=== PATIENT | female | born 1950 | race Caucasian/White ===

== ENCOUNTER 2019-06-14 17:42 | Inpatient (IN) ==
[~2019-06-14 17:42] MED LIST: DIPRIVAN VIAL ONE; EPHEDRINE SULFATE INJ ONE; NEOSTIGMINE INJ ONE; NORCURON INJ 10 MG VIAL ONE; NORMODYNE INJ 100 MG VIAL ONE; QUELICIN (OR ANECTINE) ONE; ROBINUL ONE; SUPRANE ONE; VERSED ONE
[2019-06-14 17:49] VITALS: BMI 22.6
[2019-06-14] MEDS ORDERED: NS 1000 ML 1,000 ML IV ONE (17:53)
--- NOTE | 2019-06-14 17:54 | ED.ABDFE ---
HPI Time Seen Time Seen by Provider: 06/14/19 17:53 PCP Primary Care Physician: RUDI DEJESUS HPI Comment HPI Comment: 69 yo f w/ prev hx of svt/ pacemaker/ type 2 dm presents w/ 2 day hx of progressive abd pain. Dull/ aching in quality, upper abdominal/ rlq area, non radiating, constant, no relieving/ provoking factors, a/w nb/nb n/v. + chills w/o fever. Denies diarrhea, blood per rectum, urinary sx's, cp/ sob, diaphoresis, back/ flank pain. No cough/ congestion. Complaint Chief Complaint:: PT. C/O ABDOMINAL PAIN, NAUSEA/VOMITING. PT. ALSO C/O CHILLS. PT. DRY HEAVING IN TRIAGE. Source History Provided: Patient Mode of arrival Mode of Arrival: Ambulatory Timing Onset of Chief Complaint: 06/14/19 Modifying factors Worsening Factors: Nothing Improving Factors: Nothing Associated signs and symptoms Associated Signs and Symptoms: Nausea and Vomiting; denies Diarrhea, Constipation, Hematemesis, Hematochezia, Melena, Vaginal Bleeding, Vaginal Discharge, Dysuria, Frequency, Urgency and Hematuria PMH PMH Past Medical History: Yes Past Medical History: Diabetes, Dyslipidemia and SVT Past Surgical History: Yes Surgical History: Cholecystectomy, Hysterectomy and Joint Replacement Family History History of Family Medical Conditions: Yes Family Medical History: Cancer and Coronary Artery Disease Social History Does patient currently use any type of tobacco product: No Have you used tobacco products in the last 12 months: No Type of Tobacco Use: None Does any household member use tobacco: No Alcohol Use: None Do you use any recreational Drugs:: No Lives With: Spouse Lives Where: Home infectious screening In the last 2 months have you had wt loss of >10#?: NO Have you had fever, night sweats or hemotysis?: No Have you traveled outside the country in the last 6 months?: No Isolation: Standard ROS Review of Systems Constitutional: Chills and Malaise; negative Fever Eyes: No Symptoms Reported ENTM: No Symptoms Reported Respiratoy: No Symptoms Reported Cardiovascular: No Symptoms Reported Gastrointestinal/Abdominal: Abdominal Pain, Nausea and Vomiting; negative Constipation and Diarrhea Genitourinary: No Symptoms Reported Neurological: No Symptoms Reported Musculoskeletal: No Symptoms Reported Integumentary: No Symptoms Reported Hematologic/Lymphatic: No Symptoms Reported Endocrine: No Symptoms Reported Psychiatric: No Symptoms Reported All Other Systems: Reviewed and Negative PE Vital Signs Vitals: Temperature 97.7 F Pulse Rate 77 Respiratory Rate 26 Blood Pressure [Left Arm] 122/72 Blood Pressure 153/69 O2 Sat by Pulse Oximetry 100 General Limitations: No Limitations General Appearance: Alert, Anxious and In Distress Head Head Exam: Normal Inspection Eyes Eye exam: Normal Appearance ENT ENT Exam: Normal Exam Neck Neck Exam: Normal Inspection Chest Chest Inspection: Normal Inspection Respiratory Respiratory Exam: Normal Lung Sounds Bilat Cardiovascular Cardiovascular Exam: Regular Rate and Normal Rhythm Abdominal Exam Abdominal Exam: Tenderness, Guarding (voluntary ) and Hypoactive Bowel Sounds; negative Distention, Rebound and Mass Abdominal Tenderness: RLQ and Epigastrium Rectal Rectal Exam: Deferred Back Back Exam: Normal Inspection Extremeties Extremities Exam: Normal Inspection Neurologic Neurological Exam: Alert and Oriented X3 Psychiatric Psychiatric Exam: Normal Affect and Normal Mood Skin Skin Exam: Warm, Dry and Intact MDM Additional Information Obtained From Additional information provided by: Family Differential Diagnosis Differential Diagnosis- Considerations may include:: Angina/MD, Appendicitis, Bowel Obstruction, Cholcystitis, Cholelethiasis, Constipation, Diverticular disease, Gastritus/PUD, Ischemic Bowel, Pancreatitis, Urinary obstruction, Urinary tract infection and Urolithiasis COURSE Treatment Treatment: 69 yo f w/ prev hx of svt/ pacemaker/ DM presents w/ signifigant abd pain as well as n/v. On my initial exam she was afebrile h/e had noted rigors on exam. TTP bilateral upper quadrants/ RLQ. Elevated WBC. LActate 2.7. Zosyn started empirically suspecting intrabodominal source. EKG obtained which demonstrated a LBBB. Unclear if this is old or new. TNI negative. Denies any CP whatsoever. Ct abd/ pelvis did demonstrate cecal volvulus w/ high grade obstruction. IVF's bloused and continued at 125 cc/hr. NG tube placed. d/w Dr Etienne whom agrees to consult. Dr Granda agrees to admit. Education/Counseling Education/Counseling: Patient, Family, Education and Counseling Educated On: Treatment, Diagnosis, Prognosis and Needs for Follow Up ROR Labs Reviewed Laboratory Results Reviewed?: Yes Result Diagrams: 06/14/19 17:58 06/14/19 17:58 Laboratory: WBC 19.3 X10^3/uL (3.6-10.0) H 06/14/19 17:58 RBC 4.44 X10^6/uL (3.5-5.4) 06/14/19 17:58 Hgb 12.2 g/dL (12.0-16.0) 06/14/19 17:58 Hct 37.6 % (36.0-47.0) 06/14/19 17:58 MCV 84.7 fL (80.0-100.0) 06/14/19 17:58 MCH 27.4 pg (27.0-34.0) 06/14/19 17:58 MCHC 32.3 g/dL (33.0-35.0) L 06/14/19 17:58 RDW 13.1 % (11.6-16.5) 06/14/19 17:58 Plt Count 359 X10^3/uL (150.0-450.0) 06/14/19 17:58 MPV 8.3 fL (7.4-11.0) 06/14/19 17:58 Neut % (Auto) 86.4 % (42.0-75.0) H 06/14/19 17:58 Lymph % (Auto) 9.6 % (21.0-51.0) L 06/14/19 17:58 [place] % (Auto) 3.3 % (0.0-13.0) 06/14/19 17:58 Eos % (Auto) 0.4 % (0.9-2.9) L 06/14/19 17:58 Baso % (Auto) 0.3 % (0.2-1.0) 06/14/19 17:58 Neut # (Auto) 16.7 x10^3/uL (2.2-4.8) H 06/14/19 17:58 Lymph # (Auto) 1.8 X10^3/uL (1.3-2.9) 06/14/19 17:58 [place] # (Auto) 0.6 x10^3/uL (0.3-0.8) 06/14/19 17:58 Eos # (Auto) 0.1 x10^3/uL (0.0-0.2) 06/14/19 17:58 Baso # (Auto) 0.1 X10^3/uL (0.0-0.1) 06/14/19 17:58 Absolute Nucleated RBC 0.0 /100WBC 06/14/19 17:58 Sodium 140 mmol/L (136-145) 06/14/19 17:58 Corrected Sodium 142 mmol/L (136-145) 06/14/19 17:58 Potassium 3.3 mmol/L (3.5-5.1) L 06/14/19 17:58 Chloride 100 mmol/L (98-107) 06/14/19 17:58 Carbon Dioxide 30.1 mmol/L (21-32) 06/14/19 17:58 BUN 10 mg/dL (7-18) 06/14/19 17:58 Creatinine 0.75 mg/dL (0.55-1.02) 06/14/19 17:58 Est GFR (MDRD) Af Amer > 60 (>60) 06/14/19 17:58 Est GFR (MDRD) Non-Af > 60 (>60) 06/14/19 17:58 Glucose 171 mg/dL (65-99) H 06/14/19 17:58 Lactic Acid 2.7 mmol/L (0.4-2.0) H 06/14/19 18:06 Calcium 10.1 mg/dL (8.5-10.1) 06/14/19 17:58 Troponin I < 0.02 ng/mL (0-1.5) 06/14/19 17:58 XRAY XRAY Interpreted by: Radiologist XRAY Findings: ct abd w/ cecal volvulus EKG Rate: 86 [place]: Normal Rhythm: NSR Block: LBBB Hypertrophy: None ST: Nonsp Opioid Opioid Risk Tool Age (Ian box if 16-45): No Total: 0 Total Score Risk Category: Low Risk Copyright: [facility] predicting aberrant behaviors Diagnosis Discharge Problem: Cecal volvulus Sepsis Qualifiers: Sepsis type: sepsis due to unspecified organism Sepsis acute organ dysfunction status: without acute organ dysfunction Qualified Code(s): A41.9 - Sepsis, unspecified organism
[2019-06-14] MEDS ORDERED: NS 1000 ML 1,000 ML ONE ×2 (17:58→19:03)
[2019-06-14] MEDS ORDERED: COMPAZINE INJ IVP ONE (18:02)
[2019-06-14] MEDS ORDERED: COMPAZINE INJ ONE (18:03)
[2019-06-14 18:16] LABS: BASOPHILS # (AUTO) 0.1 X10^3/uL (0.0-0.1); BASOPHILS % (AUTO) 0.3 % (0.2-1.0); EOSINOPHILS # (AUTO) 0.1 x10^3/uL (0.0-0.2); EOSINOPHILS % (AUTO) 0.4 % (0.9-2.9); HEMATOCRIT 37.6 % (36.0-47.0); HEMOGLOBIN 12.2 g/dL (12.0-16.0); LYMPHOCYTES # (AUTO) 1.8 X10^3/uL (1.3-2.9); LYMPHOCYTES % (AUTO) 9.6 % (21.0-51.0); MEAN CORPUSCULAR HEMOGLOBIN 27.4 pg (27.0-34.0); MEAN CORPUSCULAR HGB CONC 32.3 g/dL (33.0-35.0); MEAN CORPUSCULAR VOLUME 84.7 fL (80.0-100.0); MEAN PLATELET VOLUME 8.3 fL (7.4-11.0); MONOCYTES # (AUTO) 0.6 x10^3/uL (0.3-0.8); MONOCYTES % (AUTO) 3.3 % (0.0-13.0); NEUTROPHILS # (AUTO) 16.7 x10^3/uL (2.2-4.8); NEUTROPHILS % (AUTO) 86.4 % (42.0-75.0); PLATELET COUNT 359 X10^3/uL (150.0-450.0); RED BLOOD COUNT 4.44 X10^6/uL (3.5-5.4); RED CELL DISTRIBUTION WIDTH 13.1 % (11.6-16.5); WHITE BLOOD COUNT 19.3 X10^3/uL (3.6-10.0)
[2019-06-14] MEDS ORDERED: ZOSYN VIAL 3.375 GRAMS 3.375 G in NS 100 ML IV + SPIKE MINIBAG* 100 ML IV ONE (18:20)
[2019-06-14 18:28] LABS: BLOOD UREA NITROGEN 10 mg/dL (7-18); CALCIUM 10.1 mg/dL (8.5-10.1); CARBON DIOXIDE 30.1 mmol/L (21-32); CHLORIDE 100 mmol/L (98-107); COR NA(FOR HYPERGLY) 142 mmol/L (136-145); CREATININE 0.75 mg/dL (0.55-1.02); SODIUM 140 mmol/L (136-145); TROPONIN I < 0.02 ng/mL (0-1.5); eGFR NON BLACK RACES > 60 (>60)
--- NOTE | 2019-06-14 18:50 | RAD ---
HISTORYChest painSTUDYAP chestCOMPARISONNoneFINDINGSThere is mild cardiac enlargement. Pacemaker is present. The lungs and pleural spaces are clear. Metallic clothing artifacts are projected over the central mediastinum.IMPRESSIONCardiomegaly with pacemaker. No acute pulmonary or pleural lesion demonstrated.Electronically signed by: ISIAH HERRERA (Jun 14, 2019 18:49:04)
[2019-06-14] MEDS ORDERED: DILAUDID INJ IVP ONE (18:58)
[2019-06-14] MEDS ORDERED: DILAUDID INJ ONE (19:01)
[2019-06-14] MEDS ORDERED: ZOSYN VIAL 3.375 GRAMS IV ONE (19:03)
[2019-06-14] MEDS ORDERED: NS 100 ML IV + SPIKE MINIBAG* 100 ML IV ONE (19:03)
[2019-06-14] MEDS: NS 1000 ML 1,000 ML IV SCH (19:15)
--- NOTE | 2019-06-14 21:09 | CT ---
HISTORYPT. C/O ABDOMINAL PAIN, NAUSEA/VOMITING. PT. ALSO C/O CHILLS. PT. DRY HEAVING IN TRIAGE.STUDYABDOMEN/PELVIS WITH CONCOMPARISONNone.TECHNIQUEMultiple axial images of the abdomen and pelvis were obtained from the lung bases to the pubic symphysis after the administration of IV contrast. Dose reduction techniques including Automated Exposure Control (AEC) and adjustment of mA and kV were utilized.FINDINGSThe included portions of the lung bases are clear. Cardiac pacing leads are noted. The gallbladder is surgically absent. The liver, pancreas, spleen, adrenal glands and left kidney are unremarkable in their CT appearance. There are a couple of well-circumscribed right renal hypodensities measuring less than 2 cm each which likely reflect cysts. The urinary bladder is well distended and grossly unremarkable. The cecum is displaced into the left upper quadrant of the abdomen with swirling of the ascending colon which is small in caliber (images 47 through 56 of series 4). There is distension of the displaced cecum with stool and air in addition to multiple fluid-filled loops of small bowel throughout the abdomen. There is normal mucosal enhancement of the cecum without significant wall thickening or inflammatory change. The ascending and transverse colon are decompressed. There is a moderate amount of stool throughout the descending and rectosigmoid colon. There is a small amount of free fluid within the pericolic gutter on the left. There is no significant bowel wall thickening or evidence of pneumatosis. There is no portal venous gas. The mesenteric vessels appear opacified with contrast. There is no intraperitoneal free air. There is atherosclerotic disease of the nonaneurysmal abdominal aorta. There is no acute or destructive bony abnormality.IMPRESSIONCecal volvulus without late sequelae of bowel ischemia, however, correlation with lactic acid levels is suggested. There is marked distension of the cecum with high-grade obstruction of the ascending colon at the level of the volvulus resulting in diffuse small bowel dilatation. Emergent surgical consultation is recommended.Findings and recommendations were discussed over the phone with Dr. Gabriel at 9:00 p.m. 06/14/2019.Electronically signed by: GABRIELLE GAONA (Jun 14, 2019 21:08:04)
[2019-06-14] MEDS: DILAUDID INJ IVP PRN (21:53)
[2019-06-15] MEDS: ZOSYN VIAL 3.375 GRAMS 3.375 G in NS 100 ML IV + SPIKE MINIBAG* 100 ML IV SCH ×4 (00:07→21:45)
[2019-06-15 00:16] LABS: CKMB % 2.3 % (<4); CREATINE KINASE 43 Units/L (26-192); CREATINE KINASE MB < 1.0 ng/mL (0-4.0); TROPONIN I < 0.02 ng/mL (0-1.5)
[2019-06-15] MEDS ORDERED: COMPAZINE INJ ONE (01:03)
[2019-06-15] MEDS: COMPAZINE INJ IM PRN (01:21)
[2019-06-15] MEDS: DILAUDID INJ IVP PRN ×8 (02:01→20:10)
--- NOTE | 2019-06-15 03:06 | RAD ---
Chest AP portableIndication: NG tube placement.COMPARISONJan2019FINDINGSThere is no pneumothorax. NG tube tip and side port over the stomach. There is cardiomegaly with pacemaker leads. There is no pneumothorax or effusion. There is no consolidation. Heart size enlarged.IMPRESSIONCardiomegaly and COPD, similar to the earlier radiograph. NG tube is over the stomach. Dilated loop of bowel in the left abdomen is compatible with cecal volvulus seen on CTElectronically signed by: ADAN CARRERO (Jun 15, 2019 03:05:17)
[2019-06-15 06:28] LABS: ALANINE AMINOTRANSFERASE 23 Units/L (12-78); ALBUMIN 3.5 g/dL (3.4-5.0); ALKALINE PHOSPHATASE 56 Units/L (46-116); ASPARTATE AMINO TRANSFERASE 13 Units/L (15-37); BLOOD UREA NITROGEN 8 mg/dL (7-18); CALCIUM 8.6 mg/dL (8.5-10.1); CARBON DIOXIDE 28.7 mmol/L (21-32); CHLORIDE 103 mmol/L (98-107); COR NA(FOR HYPERGLY) 140 mmol/L (136-145); CREATININE 0.58 mg/dL (0.55-1.02); SODIUM 139 mmol/L (136-145); TOTAL PROTEIN 6.5 g/dL (6.4-8.2); eGFR NON BLACK RACES > 60 (>60)
[2019-06-15] MEDS: NS 1000 ML 1,000 ML IV SCH ×2 (06:28→14:07)
[2019-06-15 06:29] LABS: LACTIC ACID 0.8 mmol/L (0.4-2.0)
[2019-06-15 06:30] LABS: BASOPHILS % (AUTO) 0.1 % (0.2-1.0); EOSINOPHILS % (AUTO) 0.1 % (0.9-2.9); HEMATOCRIT 35.8 % (36.0-47.0); HEMOGLOBIN 11.8 g/dL (12.0-16.0); LYMPHOCYTES # (AUTO) 1.4 X10^3/uL (1.3-2.9); LYMPHOCYTES % (AUTO) 8.7 % (21.0-51.0); MEAN CORPUSCULAR HEMOGLOBIN 27.6 pg (27.0-34.0); MEAN CORPUSCULAR HGB CONC 32.8 g/dL (33.0-35.0); MEAN CORPUSCULAR VOLUME 83.9 fL (80.0-100.0); MEAN PLATELET VOLUME 8.4 fL (7.4-11.0); MONOCYTES # (AUTO) 0.7 x10^3/uL (0.3-0.8); MONOCYTES % (AUTO) 4.3 % (0.0-13.0); NEUTROPHILS % (AUTO) 86.8 % (42.0-75.0); PLATELET COUNT 300 X10^3/uL (150.0-450.0); RED BLOOD COUNT 4.27 X10^6/uL (3.5-5.4); RED CELL DISTRIBUTION WIDTH 13.4 % (11.6-16.5); WHITE BLOOD COUNT 16.1 X10^3/uL (3.6-10.0)
[2019-06-15 06:36] LABS: CHOL/HDL RATIO 2.2 (0.0-5.0); CHOLESTEROL 87 mg/dL (0-200); CKMB % 2.8 % (<4); CREATINE KINASE 36 Units/L (26-192); CREATINE KINASE MB < 1.0 ng/mL (0-4.0); HDL CHOLESTEROL 39 mg/dL (40-60); TRIGLYCERIDES 71 mg/dL (0-150); TROPONIN I < 0.02 ng/mL (0-1.5)
--- NOTE | 2019-06-15 09:41 | DR.PROGNOT ---
Hospital Progress Notes - Progress Note for Day of: Progress Note Date: 06/15/19 - Chief Complaint Chief Complaint: still having abdominal pain, severe at times .did not change overnight. c/o nausea . no BM. abdominal xray still showing cecal volvulus with SBO . - Past Medical Family Social History Past Med/Fam/Surg Hx: No changes since H&P Allergies: Allergies codeine Allergy (Verified 06/14/19 17:48) diltiazem [From Cardizem] Allergy (Verified 06/14/19 23:05) ondansetron [From Zofran] Allergy (Verified 06/14/19 17:48) - Review Of Systems ROS: No change since H&P - Vital Signs Vital Signs: Temperature 98.2 F Pulse Rate [Left Brachial] 88 Pulse Rate 97 Respiratory Rate 20 Blood Pressure [Left Arm] 157/74 Blood Pressure 147/71 O2 Sat by Pulse Oximetry 93 - Physical Exam Oriented: Normal Ear: Normal Nose: Normal Throat: Normal Respiratory: Normal Cardiovascular: Normal : Normal GI: Tenderness: Diffuse (distended and tympanic abdomen with metalic BS ) Speech Pattern: Clear, Appropriate - Laboratory and Diagnostics Result Diagrams: 06/15/19 05:52 06/15/19 05:52 Labs: Laboratory WBC 16.1 X10^3/uL (3.6-10.0) H 06/15/19 05:52 RBC 4.27 X10^6/uL (3.5-5.4) 06/15/19 05:52 Hgb 11.8 g/dL (12.0-16.0) L 06/15/19 05:52 Hct 35.8 % (36.0-47.0) L 06/15/19 05:52 MCV 83.9 fL (80.0-100.0) 06/15/19 05:52 MCH 27.6 pg (27.0-34.0) 06/15/19 05:52 MCHC 32.8 g/dL (33.0-35.0) L 06/15/19 05:52 RDW 13.4 % (11.6-16.5) 06/15/19 05:52 Plt Count 300 X10^3/uL (150.0-450.0) 06/15/19 05:52 MPV 8.4 fL (7.4-11.0) 06/15/19 05:52 Neut % (Auto) 86.8 % (42.0-75.0) H 06/15/19 05:52 Lymph % (Auto) 8.7 % (21.0-51.0) L 06/15/19 05:52 [place] % (Auto) 4.3 % (0.0-13.0) 06/15/19 05:52 Eos % (Auto) 0.1 % (0.9-2.9) L 06/15/19 05:52 Baso % (Auto) 0.1 % (0.2-1.0) L 06/15/19 05:52 Neut # (Auto) 14.0 x10^3/uL (2.2-4.8) H 06/15/19 05:52 Lymph # (Auto) 1.4 X10^3/uL (1.3-2.9) 06/15/19 05:52 [place] # (Auto) 0.7 x10^3/uL (0.3-0.8) 06/15/19 05:52 Eos # (Auto) 0.0 x10^3/uL (0.0-0.2) 06/15/19 05:52 Baso # (Auto) 0.0 X10^3/uL (0.0-0.1) 06/15/19 05:52 Absolute Nucleated RBC 0.0 /100WBC 06/15/19 05:52 Sodium 139 mmol/L (136-145) 06/15/19 05:52 Corrected Sodium 140 mmol/L (136-145) 06/15/19 05:52 Potassium 3.5 mmol/L (3.5-5.1) 06/15/19 05:52 Chloride 103 mmol/L (98-107) 06/15/19 05:52 Carbon Dioxide 28.7 mmol/L (21-32) 06/15/19 05:52 BUN 8 mg/dL (7-18) 06/15/19 05:52 Creatinine 0.58 mg/dL (0.55-1.02) 06/15/19 05:52 Est GFR (MDRD) Af Amer > 60 (>60) 06/15/19 05:52 Est GFR (MDRD) Non-Af > 60 (>60) 06/15/19 05:52 Glucose 130 mg/dL (65-99) H 06/15/19 05:52 POC Glucose (mg/dL) 131 mg/dL (65-99) H 06/15/19 05:36 Lactic Acid 0.8 mmol/L (0.4-2.0) 06/15/19 05:52 Calcium 8.6 mg/dL (8.5-10.1) 06/15/19 05:52 Corrected Calcium TNP 06/15/19 05:52 Total Bilirubin 0.30 mg/dL (0.2-1.0) 06/15/19 05:52 AST 13 Units/L (15-37) L 06/15/19 05:52 ALT 23 Units/L (12-78) 06/15/19 05:52 Alkaline Phosphatase 56 Units/L (46-116) 06/15/19 05:52 Creatine Kinase 36 Units/L (26-192) 06/15/19 05:52 CK-MB (CK-2) < 1.0 ng/mL (0-4.0) 06/15/19 05:52 CK/CKMB % Calc 2.8 % (<4) 06/15/19 05:52 Troponin I < 0.02 ng/mL (0-1.5) 06/15/19 05:52 Total Protein 6.5 g/dL (6.4-8.2) 06/15/19 05:52 Albumin 3.5 g/dL (3.4-5.0) 06/15/19 05:52 Globulin 3.0 g/dL (2.5-4.5) 06/15/19 05:52 Albumin/Globulin Ratio 1.2 Ratio (1.1-2.1) 06/15/19 05:52 Triglycerides 71 mg/dL (0-150) 06/15/19 05:52 Cholesterol 87 mg/dL (0-200) 06/15/19 05:52 LDL Cholesterol, Calc 34 mg/dL (0-100) 06/15/19 05:52 HDL Cholesterol 39 mg/dL (40-60) L 06/15/19 05:52 Cholesterol/HDL Ratio 2.2 (0.0-5.0) 06/15/19 05:52 - Assessment and Plan 1: BOWEL OBSTRUCTION POSSIBLE CECAL VOLVULUS WITH ADHESIONS . TO PROCEED WITH LAPAROTOMY AND POSSIBLE BOWEL RESECTION .. 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
[2019-06-15] MEDS ORDERED: NS 1000 ML 1,000 ML ONE ×2 (09:48→09:55)
[2019-06-15] MEDS ORDERED: FENTANYL INJ 250 mcg ONE (09:49)
[2019-06-15] MEDS ORDERED: DROPERIDOL ONE (10:03)
[2019-06-15] MEDS ORDERED: LEVAQUIN PREMIX IV 500 MG 500 MG/100 ML BAG IV ONE (10:33)
[2019-06-15] MEDS ORDERED: BACITRACIN VIAL ONE (10:35)
[2019-06-15] MEDS ORDERED: DILAUDID INJ ONE ×4 (11:29→13:59)
[2019-06-15 11:34] LABS: BILIRUBIN,URINE NEGATIVE (NEGATIVE); BLOOD/HEMOGLOBIN,URINE 3+ (NEGATIVE); GLUCOSE, URINE NEGATIVE (NEGATIVE); KETONES,URINE 2+ (NEGATIVE); LEUKOCYTE ESTERASE ,URINE NEGATIVE (NEGATIVE); NITRITES,URINE NEGATIVE (NEGATIVE); PROTEIN,URINE 2+ (NEGATIVE); UROBILINOGEN,URINE NORMAL (NORMAL)
[2019-06-15 11:44] LABS: APPEARANCE,URINE CLEAR (CLEAR); BACTERIA,URINE NEGATIVE /HPF (NEGATIVE); COLOR,URINE YELLOW (YELLOW); SQUAMOUS EPITHELIAL CELL,UR RARE /HPF (NEGATIVE)
[2019-06-15] MEDS ORDERED: BENADRYL INJ 50 MG VIAL IVP PRN (13:00)
[2019-06-15] MEDS ORDERED: DILAUDID INJ IVP PRN (13:00)
[2019-06-15] MEDS ORDERED: PHENERGAN INJ 25 MG IM PRN (13:00)
[2019-06-15] MEDS ORDERED: REGLAN INJ 10 MG VIAL IVP PRN (13:00)
--- NOTE | 2019-06-15 13:04 | OR.IMMED ---
Immediate Post-Op Note - Immediate Post-Op Note Pre-Op Diagnosis: bowel obstruction with cecal volvulus . abdominal adhesions. Post-Op Diagnosis: cecal volvulus with close loop obstruction. abdominal adhesions . Procedure: exploratory laparotomy , lysis of adhesions . rt colon resection.. Surgeon/Bacteriologist Soil: Jaimie. Specimens Removed: cecum and rt colon. Drains: Too Jean Complications: none Condition: Stable (keep NPO .NGT and PO care .)
[2019-06-15] MEDS ORDERED: NS IRRIGATION 1000 ML ONE (14:27)
[2019-06-15] MEDS: FLAGYL IV PREMIX 500 MG BAG 500 MG/100 ML BAG IV SCH ×2 (14:29→20:19)
--- NOTE | 2019-06-15 15:34 | RAD ---
HISTORYBOWEL OBSTRUCTION DIABETES, GB, HYSTERECTOMY, JOINT REPLACEMENTSTUDYKUBCOMPARISONCT abdomen pelvis June 14, 2001FINDINGSEvaluation of the abdomen demonstrates diffuse mild dilatation of the small bowel throughout the abdomen. Contrast is noted throughout the small bowel loops. Interval laparotomy has been performed with midline krystian and drain in place. The osseous structures are intact.IMPRESSIONInterval laparotomy with mild residual diffuse small bowel dilatation.Electronically signed by: CHAYO NIEVES (Jun 15, 2019 15:33:48)
[2019-06-15] MEDS ORDERED: LOPRESSOR INJ 5 MG AMP ONE ×2 (16:28→18:21)
[2019-06-15] MEDS: LOPRESSOR INJ 5 MG AMP IVP PRN ×2 (16:37→18:29)
[2019-06-15] MEDS ORDERED: HumuLIN R SUBCUT PRN (16:46)
[2019-06-15] MEDS ORDERED: HumuLIN R ONE (16:52)
[2019-06-15] MEDS ORDERED: LOPRESSOR INJ 5 MG AMP IVP PRN (19:00)
[2019-06-15] MEDS: SNACK - Diabetic Appropriate PO SCH (20:20)
[2019-06-16] MEDS: DILAUDID INJ IVP PRN ×10 (00:10→19:32)
[2019-06-16] MEDS: NS 1000 ML 1,000 ML IV SCH ×2 (00:11→04:18)
[2019-06-16] MEDS: FLAGYL IV PREMIX 500 MG BAG 500 MG/100 ML BAG IV SCH ×4 (02:20→20:19)
[2019-06-16 04:28] LABS: BASOPHILS % (AUTO) 0.2 % (0.2-1.0); HEMATOCRIT 34.6 % (36.0-47.0); HEMOGLOBIN 11.3 g/dL (12.0-16.0); LYMPHOCYTES # (AUTO) 1.1 X10^3/uL (1.3-2.9); LYMPHOCYTES % (AUTO) 5.3 % (21.0-51.0); MEAN CORPUSCULAR HEMOGLOBIN 27.3 pg (27.0-34.0); MEAN CORPUSCULAR HGB CONC 32.6 g/dL (33.0-35.0); MEAN CORPUSCULAR VOLUME 83.8 fL (80.0-100.0); MEAN PLATELET VOLUME 8.1 fL (7.4-11.0); MONOCYTES # (AUTO) 1.3 x10^3/uL (0.3-0.8); MONOCYTES % (AUTO) 6.1 % (0.0-13.0); NEUTROPHILS # (AUTO) 18.1 x10^3/uL (2.2-4.8); NEUTROPHILS % (AUTO) 88.4 % (42.0-75.0); PLATELET COUNT 308 X10^3/uL (150.0-450.0); RED BLOOD COUNT 4.13 X10^6/uL (3.5-5.4); RED CELL DISTRIBUTION WIDTH 13.6 % (11.6-16.5); WHITE BLOOD COUNT 20.5 X10^3/uL (3.6-10.0)
[2019-06-16 04:49] LABS: ALANINE AMINOTRANSFERASE 18 Units/L (12-78); ALBUMIN 2.5 g/dL (3.4-5.0); ALKALINE PHOSPHATASE 40 Units/L (46-116); ASPARTATE AMINO TRANSFERASE 17 Units/L (15-37); BLOOD UREA NITROGEN 10 mg/dL (7-18); CALCIUM 7.2 mg/dL (8.5-10.1); CARBON DIOXIDE 25.6 mmol/L (21-32); CHLORIDE 107 mmol/L (98-107); COR CA(FOR HYPOALB) 8.4 mg/dL (8.5-10.1); COR NA(FOR HYPERGLY) 144 mmol/L (136-145); CREATININE 0.58 mg/dL (0.55-1.02); SODIUM 142 mmol/L (136-145); TOTAL PROTEIN 5.3 g/dL (6.4-8.2); eGFR NON BLACK RACES > 60 (>60)
[2019-06-16] MEDS: ZOSYN VIAL 3.375 GRAMS 3.375 G in NS 100 ML IV + SPIKE MINIBAG* 100 ML IV SCH ×3 (06:36→22:07)
[2019-06-16] MEDS: LOVENOX INJ 40 MG SYR SC SCH (08:08)
[2019-06-16] MEDS: NS + KCL 20 MEQ/L 1,000 ML IV SCH ×3 (10:02→19:49)
--- NOTE | 2019-06-16 10:32 | DR.PROGNOT ---
Hospital Progress Notes - Progress Note for Day of: Progress Note Date: 06/16/19 - Chief Complaint Chief Complaint: PO day 1. s/p laparotomy , Rt colectomy , lysis of adhesions . doing fairly well with good urine out put and stable VS .. - Past Medical Family Social History Past Med/Fam/Surg Hx: No changes since H&P Allergies: Allergies codeine Allergy (Verified 06/14/19 17:48) diltiazem [From Cardizem] Allergy (Verified 06/14/19 23:05) ondansetron [From Zofran] Allergy (Verified 06/14/19 17:48) - Review Of Systems ROS: No change since H&P - Vital Signs Vital Signs: Temperature 99.5 F Pulse Rate [Left Brachial] 83 Pulse Rate 103 Respiratory Rate 16 Blood Pressure [Left Arm] 161/76 Blood Pressure 162/71 O2 Sat by Pulse Oximetry 97 - Physical Exam Oriented: Normal Ear: Normal Nose: Normal Throat: Normal Respiratory: Normal Cardiovascular: Normal : Normal GI: Tenderness: Diffuse (incisional tenderness , BS hypoactive ..) Mood Description: Calm Speech Pattern: Clear, Appropriate - Laboratory and Diagnostics Result Diagrams: 06/16/19 03:58 06/16/19 03:58 Labs: Laboratory WBC 20.5 X10^3/uL (3.6-10.0) H 06/16/19 03:58 RBC 4.13 X10^6/uL (3.5-5.4) 06/16/19 03:58 Hgb 11.3 g/dL (12.0-16.0) L 06/16/19 03:58 Hct 34.6 % (36.0-47.0) L 06/16/19 03:58 MCV 83.8 fL (80.0-100.0) 06/16/19 03:58 MCH 27.3 pg (27.0-34.0) 06/16/19 03:58 MCHC 32.6 g/dL (33.0-35.0) L 06/16/19 03:58 RDW 13.6 % (11.6-16.5) 06/16/19 03:58 Plt Count 308 X10^3/uL (150.0-450.0) 06/16/19 03:58 MPV 8.1 fL (7.4-11.0) 06/16/19 03:58 Neut % (Auto) 88.4 % (42.0-75.0) H 06/16/19 03:58 Lymph % (Auto) 5.3 % (21.0-51.0) L 06/16/19 03:58 [place] % (Auto) 6.1 % (0.0-13.0) 06/16/19 03:58 Eos % (Auto) 0.0 % (0.9-2.9) L 06/16/19 03:58 Baso % (Auto) 0.2 % (0.2-1.0) 06/16/19 03:58 Neut # (Auto) 18.1 x10^3/uL (2.2-4.8) H 06/16/19 03:58 Lymph # (Auto) 1.1 X10^3/uL (1.3-2.9) L 06/16/19 03:58 [place] # (Auto) 1.3 x10^3/uL (0.3-0.8) H 06/16/19 03:58 Eos # (Auto) 0.0 x10^3/uL (0.0-0.2) 06/16/19 03:58 Baso # (Auto) 0.0 X10^3/uL (0.0-0.1) 06/16/19 03:58 Absolute Nucleated RBC 0.0 /100WBC 06/16/19 03:58 Sodium 142 mmol/L (136-145) 06/16/19 03:58 Corrected Sodium 144 mmol/L (136-145) 06/16/19 03:58 Potassium 3.4 mmol/L (3.5-5.1) L 06/16/19 03:58 Chloride 107 mmol/L (98-107) 06/16/19 03:58 Carbon Dioxide 25.6 mmol/L (21-32) 06/16/19 03:58 BUN 10 mg/dL (7-18) 06/16/19 03:58 Creatinine 0.58 mg/dL (0.55-1.02) 06/16/19 03:58 Est GFR (MDRD) Af Amer > 60 (>60) 06/16/19 03:58 Est GFR (MDRD) Non-Af > 60 (>60) 06/16/19 03:58 Glucose 167 mg/dL (65-99) H 06/16/19 03:58 POC Glucose (mg/dL) 149 mg/dL (65-99) H 06/16/19 06:29 Lactic Acid 0.8 mmol/L (0.4-2.0) 06/15/19 05:52 Calcium 7.2 mg/dL (8.5-10.1) L 06/16/19 03:58 Corrected Calcium 8.4 mg/dL (8.5-10.1) L 06/16/19 03:58 Total Bilirubin 0.30 mg/dL (0.2-1.0) 06/16/19 03:58 AST 17 Units/L (15-37) 06/16/19 03:58 ALT 18 Units/L (12-78) 06/16/19 03:58 Alkaline Phosphatase 40 Units/L (46-116) L 06/16/19 03:58 Creatine Kinase 36 Units/L (26-192) 06/15/19 05:52 CK-MB (CK-2) < 1.0 ng/mL (0-4.0) 06/15/19 05:52 CK/CKMB % Calc 2.8 % (<4) 06/15/19 05:52 Troponin I < 0.02 ng/mL (0-1.5) 06/15/19 05:52 Total Protein 5.3 g/dL (6.4-8.2) L 06/16/19 03:58 Albumin 2.5 g/dL (3.4-5.0) L 06/16/19 03:58 Globulin 2.8 g/dL (2.5-4.5) 06/16/19 03:58 Albumin/Globulin Ratio 0.9 Ratio (1.1-2.1) L 06/16/19 03:58 Triglycerides 71 mg/dL (0-150) 06/15/19 05:52 Cholesterol 87 mg/dL (0-200) 06/15/19 05:52 LDL Cholesterol, Calc 34 mg/dL (0-100) 06/15/19 05:52 HDL Cholesterol 39 mg/dL (40-60) L 06/15/19 05:52 Cholesterol/HDL Ratio 2.2 (0.0-5.0) 06/15/19 05:52 Specimen Type Catherized urine 06/15/19 10:53 Urine Color Yellow (YELLOW) 06/15/19 10:53 Urine Appearance Clear (CLEAR) 06/15/19 10:53 Urine pH 6.0 (5.0 - 8.0) 06/15/19 10:53 Ur Specific [place] 1.020 (1.000-1.030) 06/15/19 10:53 Urine Protein 2+ (NEGATIVE) 06/15/19 10:53 Urine Glucose (UA) Negative (NEGATIVE) 06/15/19 10:53 Urine Ketones 2+ (NEGATIVE) 06/15/19 10:53 Urine Occult Blood 3+ (NEGATIVE) 06/15/19 10:53 Urine Nitrite Negative (NEGATIVE) 06/15/19 10:53 Urine Bilirubin Negative (NEGATIVE) 06/15/19 10:53 Urine Urobilinogen Normal (NORMAL) 06/15/19 10:53 Ur Leukocyte Esterase Negative (NEGATIVE) 06/15/19 10:53 Urine RBC 5-10 /HPF (0-3) A 06/15/19 10:53 Urine WBC 0-2 /HPF (0-5) 06/15/19 10:53 Ur Squamous Epith Cells Rare /HPF (NEGATIVE) 06/15/19 10:53 Urine Bacteria Negative /HPF (NEGATIVE) 06/15/19 10:53 Ur Culture Indicated? No/not indicated 06/15/19 10:53 Tissue Pathology To follow 06/15/19 11:26 - Assessment and Plan 1: cecal volvulus , S/P laparotomy , Rt colon resection , lysis of adhesions. same PO care . OOB ,DVT prophylaxis . well keep [place] today and IV ATB because of mild contamination from the bowel . 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
[2019-06-16] MEDS: SNACK - Diabetic Appropriate PO SCH (19:16)
[2019-06-17] MEDS: FLAGYL IV PREMIX 500 MG BAG 500 MG/100 ML BAG IV SCH ×4 (02:24→20:26)
[2019-06-17] MEDS: NS + KCL 20 MEQ/L 1,000 ML IV SCH ×4 (02:25→17:41)
[2019-06-17 05:11] LABS: BASOPHILS % (AUTO) 0.1 % (0.2-1.0); HEMATOCRIT 26.4 % (36.0-47.0); HEMOGLOBIN 8.7 g/dL (12.0-16.0); LYMPHOCYTES # (AUTO) 0.9 X10^3/uL (1.3-2.9); LYMPHOCYTES % (AUTO) 5.2 % (21.0-51.0); MEAN CORPUSCULAR HEMOGLOBIN 27.7 pg (27.0-34.0); MEAN CORPUSCULAR HGB CONC 32.9 g/dL (33.0-35.0); MEAN CORPUSCULAR VOLUME 84.3 fL (80.0-100.0); MEAN PLATELET VOLUME 8.7 fL (7.4-11.0); MONOCYTES # (AUTO) 0.9 x10^3/uL (0.3-0.8); NEUTROPHILS # (AUTO) 16.1 x10^3/uL (2.2-4.8); NEUTROPHILS % (AUTO) 89.7 % (42.0-75.0); PLATELET COUNT 209 X10^3/uL (150.0-450.0); RED BLOOD COUNT 3.13 X10^6/uL (3.5-5.4); RED CELL DISTRIBUTION WIDTH 13.3 % (11.6-16.5); WHITE BLOOD COUNT 17.9 X10^3/uL (3.6-10.0)
[2019-06-17 05:21] LABS: ALANINE AMINOTRANSFERASE 19 Units/L (12-78); ALBUMIN 2.1 g/dL (3.4-5.0); ALKALINE PHOSPHATASE 41 Units/L (46-116); ASPARTATE AMINO TRANSFERASE 18 Units/L (15-37); BLOOD UREA NITROGEN 10 mg/dL (7-18); CALCIUM 7.2 mg/dL (8.5-10.1); CARBON DIOXIDE 29.1 mmol/L (21-32); CHLORIDE 107 mmol/L (98-107); COR CA(FOR HYPOALB) 8.7 mg/dL (8.5-10.1); COR NA(FOR HYPERGLY) 143 mmol/L (136-145); CREATININE 0.47 mg/dL (0.55-1.02); SODIUM 142 mmol/L (136-145); TOTAL PROTEIN 4.9 g/dL (6.4-8.2); eGFR NON BLACK RACES > 60 (>60)
[2019-06-17] MEDS: ZOSYN VIAL 3.375 GRAMS 3.375 G in NS 100 ML IV + SPIKE MINIBAG* 100 ML IV SCH ×3 (06:25→22:20)
[2019-06-17] MEDS: DILAUDID INJ IVP PRN ×4 (06:26→21:07)
[2019-06-17] MEDS: LOVENOX INJ 40 MG SYR SC SCH (09:05)
[2019-06-17] MEDS: CALAN SR 180 MG PO SCH ×2 (09:36→20:25)
[2019-06-17] MEDS: ZESTRIL TAB 5 MG PO SCH (09:36)
[2019-06-17] MEDS: GLUCOPHAGE XR PO SCH ×2 (09:45→20:25)
[2019-06-17] MEDS ORDERED: POTASSIUM CHL 60 MEQ/NS 0.45% 500 ML IV PRN (10:22)
[2019-06-17] MEDS ORDERED: K-RIDER 10 MEQ/NS 100 ML 10 MEQ/100 ML BAG IV PRN (10:22)
[2019-06-17] MEDS ORDERED: MICRO K EXTEN CAP 10 MEQ PO PRN (10:22)
[2019-06-17] MEDS ORDERED: KLOR-CON PO PRN (10:22)
[2019-06-17] MEDS ORDERED: POTASSIUM CHL 40 MEQ/NS 0.45% 500 ML IV PRN (10:22)
[2019-06-17] MEDS ORDERED: POTASSIUM CHLORIDE LIQ 20 MEQ UDC PO PRN (10:22)
[2019-06-17] MEDS: MAGNESIUM SULFATE 1 GRAM/100 mL PREMIX 1 GM/100 ML BAG IV PRN ×2 (10:55→12:36)
[2019-06-17] MEDS: TOVIAZ PO SCH (20:24)
[2019-06-17] MEDS: SNACK - Diabetic Appropriate PO SCH (20:24)
[2019-06-17] MEDS: K-DUR TAB 20 MEQ PO PRN (20:25)
[2019-06-17] MEDS: COMPAZINE INJ IM PRN (21:03)
[2019-06-18] MEDS: DILAUDID INJ IVP PRN ×6 (00:27→20:55)
[2019-06-18] MEDS: FLAGYL IV PREMIX 500 MG BAG 500 MG/100 ML BAG IV SCH ×4 (02:15→20:56)
[2019-06-18] MEDS: NS + KCL 20 MEQ/L 1,000 ML IV SCH ×3 (02:15→16:29)
[2019-06-18] MEDS: ZOSYN VIAL 3.375 GRAMS 3.375 G in NS 100 ML IV + SPIKE MINIBAG* 100 ML IV SCH ×3 (05:00→23:00)
[2019-06-18 05:26] LABS: BASOPHILS % (AUTO) 0 % (0.2-1.0); EOSINOPHILS % (AUTO) 0.3 % (0.9-2.9); HEMATOCRIT 24.2 % (36.0-47.0); HEMOGLOBIN 8.3 g/dL (12.0-16.0); LYMPHOCYTES # (AUTO) 1.4 X10^3/uL (1.3-2.9); LYMPHOCYTES % (AUTO) 9.6 % (21.0-51.0); MEAN CORPUSCULAR HEMOGLOBIN 28.1 pg (27.0-34.0); MEAN CORPUSCULAR HGB CONC 34.1 g/dL (33.0-35.0); MEAN CORPUSCULAR VOLUME 82.3 fL (80.0-100.0); MONOCYTES # (AUTO) 0.7 x10^3/uL (0.3-0.8); NEUTROPHILS # (AUTO) 12.1 x10^3/uL (2.2-4.8); NEUTROPHILS % (AUTO) 85.1 % (42.0-75.0); PLATELET COUNT 222 X10^3/uL (150.0-450.0); RED BLOOD COUNT 2.94 X10^6/uL (3.5-5.4); RED CELL DISTRIBUTION WIDTH 13.2 % (11.6-16.5); WHITE BLOOD COUNT 14.2 X10^3/uL (3.6-10.0)
[2019-06-18 05:42] LABS: ALANINE AMINOTRANSFERASE 19 Units/L (12-78); ALBUMIN 2.1 g/dL (3.4-5.0); ALKALINE PHOSPHATASE 41 Units/L (46-116); ASPARTATE AMINO TRANSFERASE 17 Units/L (15-37); BLOOD UREA NITROGEN 9 mg/dL (7-18); CALCIUM 7.1 mg/dL (8.5-10.1); CARBON DIOXIDE 26.7 mmol/L (21-32); CHLORIDE 104 mmol/L (98-107); COR CA(FOR HYPOALB) 8.6 mg/dL (8.5-10.1); CREATININE 0.39 mg/dL (0.55-1.02); SODIUM 139 mmol/L (136-145); TOTAL PROTEIN 5.1 g/dL (6.4-8.2); eGFR NON BLACK RACES > 60 (>60)
[2019-06-18] MEDS: GLUCOPHAGE XR PO SCH ×2 (08:47→20:56)
[2019-06-18] MEDS: CALAN SR 180 MG PO SCH ×2 (08:47→20:56)
[2019-06-18] MEDS: TOVIAZ PO SCH (08:48)
[2019-06-18] MEDS: LOVENOX INJ 40 MG SYR SC SCH (08:48)
[2019-06-18] MEDS: ZESTRIL TAB 5 MG PO SCH (08:48)
--- NOTE | 2019-06-18 15:22 | DR.PROGNOT ---
Hospital Progress Notes - Progress Note for Day of: Progress Note Date: 06/18/19 - Chief Complaint Chief Complaint: PO day 3. s/p laparotomy , Rt colectomy , lysis of adhesions . doing fairly well with good urine out put and stable VS .. tolerating diet well . afebrile . - Past Medical Family Social History Past Med/Fam/Surg Hx: No changes since H&P Allergies: Allergies codeine Allergy (Verified 06/14/19 17:48) diltiazem [From Cardizem] Allergy (Verified 06/14/19 23:05) ondansetron [From Zofran] Allergy (Verified 06/14/19 17:48) - Review Of Systems ROS: No change since H&P - Vital Signs Vital Signs: Temperature 99.6 F Pulse Rate [Left Brachial] 83 Pulse Rate 88 Respiratory Rate 23 Blood Pressure [Left Arm] 161/76 Blood Pressure 133/60 O2 Sat by Pulse Oximetry 90 - Physical Exam Oriented: Normal Ear: Normal Nose: Normal Throat: Normal Respiratory: Normal Cardiovascular: Normal : Normal GI: Tenderness: Diffuse (incisional tenderness , BS hypoactive ..) Mood Description: Calm Speech Pattern: Clear, Appropriate - Laboratory and Diagnostics Result Diagrams: 06/18/19 04:31 06/18/19 04:31 Labs: 06/14/19 17:58 Blood Blood Culture - Final 06/14/19 18:06 Blood Blood Culture - Preliminary Laboratory WBC 14.2 X10^3/uL (3.6-10.0) H 06/18/19 04:31 RBC 2.94 X10^6/uL (3.5-5.4) L 06/18/19 04:31 Hgb 8.3 g/dL (12.0-16.0) L 06/18/19 04:31 Hct 24.2 % (36.0-47.0) L 06/18/19 04:31 MCV 82.3 fL (80.0-100.0) 06/18/19 04:31 MCH 28.1 pg (27.0-34.0) 06/18/19 04:31 MCHC 34.1 g/dL (33.0-35.0) 06/18/19 04:31 RDW 13.2 % (11.6-16.5) 06/18/19 04:31 Plt Count 222 X10^3/uL (150.0-450.0) 06/18/19 04:31 MPV 8.0 fL (7.4-11.0) 06/18/19 04:31 Neut % (Auto) 85.1 % (42.0-75.0) H 06/18/19 04:31 Lymph % (Auto) 9.6 % (21.0-51.0) L 06/18/19 04:31 [place] % (Auto) 5.0 % (0.0-13.0) 06/18/19 04:31 Eos % (Auto) 0.3 % (0.9-2.9) L 06/18/19 04:31 Baso % (Auto) 0 % (0.2-1.0) L 06/18/19 04:31 Neut # (Auto) 12.1 x10^3/uL (2.2-4.8) H 06/18/19 04:31 Lymph # (Auto) 1.4 X10^3/uL (1.3-2.9) 06/18/19 04:31 [place] # (Auto) 0.7 x10^3/uL (0.3-0.8) 06/18/19 04:31 Eos # (Auto) 0.0 x10^3/uL (0.0-0.2) 06/18/19 04:31 Baso # (Auto) 0.0 X10^3/uL (0.0-0.1) 06/18/19 04:31 Absolute Nucleated RBC 0.0 /100WBC 06/18/19 04:31 Sodium 139 mmol/L (136-145) 06/18/19 04:31 Corrected Sodium TNP 06/18/19 04:31 Potassium 3.8 mmol/L (3.5-5.1) 06/18/19 04:31 Chloride 104 mmol/L (98-107) 06/18/19 04:31 Carbon Dioxide 26.7 mmol/L (21-32) 06/18/19 04:31 BUN 9 mg/dL (7-18) 06/18/19 04:31 Creatinine 0.39 mg/dL (0.55-1.02) L 06/18/19 04:31 Est GFR (MDRD) Af Amer > 60 (>60) 06/18/19 04:31 Est GFR (MDRD) Non-Af > 60 (>60) 06/18/19 04:31 Glucose 94 mg/dL (65-99) 06/18/19 04:31 POC Glucose (mg/dL) 98 mg/dL (65-99) 06/18/19 11:54 Lactic Acid 0.8 mmol/L (0.4-2.0) 06/15/19 05:52 Calcium 7.1 mg/dL (8.5-10.1) L 06/18/19 04:31 Corrected Calcium 8.6 mg/dL (8.5-10.1) 06/18/19 04:31 Magnesium 2.0 mg/dL (1.7-2.9) 06/18/19 04:31 Total Bilirubin 0.40 mg/dL (0.2-1.0) 06/18/19 04:31 AST 17 Units/L (15-37) 06/18/19 04:31 ALT 19 Units/L (12-78) 06/18/19 04:31 Alkaline Phosphatase 41 Units/L (46-116) L 06/18/19 04:31 Creatine Kinase 36 Units/L (26-192) 06/15/19 05:52 CK-MB (CK-2) < 1.0 ng/mL (0-4.0) 06/15/19 05:52 CK/CKMB % Calc 2.8 % (<4) 06/15/19 05:52 Troponin I < 0.02 ng/mL (0-1.5) 06/15/19 05:52 Total Protein 5.1 g/dL (6.4-8.2) L 06/18/19 04:31 Albumin 2.1 g/dL (3.4-5.0) L 06/18/19 04:31 Globulin 3.0 g/dL (2.5-4.5) 06/18/19 04:31 Albumin/Globulin Ratio 0.7 Ratio (1.1-2.1) L 06/18/19 04:31 Triglycerides 71 mg/dL (0-150) 06/15/19 05:52 Cholesterol 87 mg/dL (0-200) 06/15/19 05:52 LDL Cholesterol, Calc 34 mg/dL (0-100) 06/15/19 05:52 HDL Cholesterol 39 mg/dL (40-60) L 06/15/19 05:52 Cholesterol/HDL Ratio 2.2 (0.0-5.0) 06/15/19 05:52 Specimen Type Catherized urine 06/15/19 10:53 Urine Color Yellow (YELLOW) 06/15/19 10:53 Urine Appearance Clear (CLEAR) 06/15/19 10:53 Urine pH 6.0 (5.0 - 8.0) 06/15/19 10:53 Ur Specific [place] 1.020 (1.000-1.030) 06/15/19 10:53 Urine Protein 2+ (NEGATIVE) 06/15/19 10:53 Urine Glucose (UA) Negative (NEGATIVE) 06/15/19 10:53 Urine Ketones 2+ (NEGATIVE) 06/15/19 10:53 Urine Occult Blood 3+ (NEGATIVE) 06/15/19 10:53 Urine Nitrite Negative (NEGATIVE) 06/15/19 10:53 Urine Bilirubin Negative (NEGATIVE) 06/15/19 10:53 Urine Urobilinogen Normal (NORMAL) 06/15/19 10:53 Ur Leukocyte Esterase Negative (NEGATIVE) 06/15/19 10:53 Urine RBC 5-10 /HPF (0-3) A 06/15/19 10:53 Urine WBC 0-2 /HPF (0-5) 06/15/19 10:53 Ur Squamous Epith Cells Rare /HPF (NEGATIVE) 06/15/19 10:53 Urine Bacteria Negative /HPF (NEGATIVE) 06/15/19 10:53 Ur Culture Indicated? No/not indicated 06/15/19 10:53 Tissue Pathology To follow 06/15/19 11:26 - Assessment and Plan 1: cecal volvulus , S/P laparotomy , Rt colon resection , lysis of adhesions. no BM yet . moderate drainage in BOB . same PO care . OOB ,DVT prophylaxis . to keep BOB in place today and same liquid diet . 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
[2019-06-18] MEDS ORDERED: PEPCID TAB 20 MG ONE (18:05)
[2019-06-18] MEDS: SNACK - Diabetic Appropriate PO SCH (21:00)
[2019-06-18] MEDS ORDERED: COMPAZINE INJ ONE (21:12)
[2019-06-18] MEDS: COMPAZINE INJ IM PRN (21:17)
[2019-06-19] MEDS ORDERED: PEPCID 20 MG IV PREMIX* 20 MG/50 ML BAG IV ONE (00:09)
[2019-06-19] MEDS: PEPCID 20 MG IV PREMIX* 20 MG/50 ML BAG IV SCH ×3 (00:10→21:08)
[2019-06-19] MEDS: NS + KCL 20 MEQ/L 1,000 ML IV SCH ×5 (02:00→18:07)
[2019-06-19] MEDS ORDERED: COMPAZINE INJ ONE (02:36)
[2019-06-19] MEDS: COMPAZINE INJ IM PRN (03:17)
[2019-06-19] MEDS: FLAGYL IV PREMIX 500 MG BAG 500 MG/100 ML BAG IV SCH (03:17)
[2019-06-19] MEDS: DILAUDID INJ IVP PRN ×4 (03:23→22:08)
[2019-06-19 05:14] LABS: BASOPHILS # (AUTO) 0.1 X10^3/uL (0.0-0.1); BASOPHILS % (AUTO) 0.4 % (0.2-1.0); EOSINOPHILS % (AUTO) 0.1 % (0.9-2.9); HEMATOCRIT 28.2 % (36.0-47.0); HEMOGLOBIN 9.3 g/dL (12.0-16.0); LYMPHOCYTES % (AUTO) 7.3 % (21.0-51.0); MEAN CORPUSCULAR HEMOGLOBIN 27.5 pg (27.0-34.0); MEAN CORPUSCULAR VOLUME 83.2 fL (80.0-100.0); MEAN PLATELET VOLUME 8.1 fL (7.4-11.0); MONOCYTES # (AUTO) 0.6 x10^3/uL (0.3-0.8); MONOCYTES % (AUTO) 4.7 % (0.0-13.0); NEUTROPHILS # (AUTO) 11.4 x10^3/uL (2.2-4.8); NEUTROPHILS % (AUTO) 87.5 % (42.0-75.0); PLATELET COUNT 328 X10^3/uL (150.0-450.0); RED BLOOD COUNT 3.39 X10^6/uL (3.5-5.4); RED CELL DISTRIBUTION WIDTH 13.2 % (11.6-16.5)
[2019-06-19] MEDS: ZOSYN VIAL 3.375 GRAMS 3.375 G in NS 100 ML IV + SPIKE MINIBAG* 100 ML IV SCH (05:53)
[2019-06-19 09:04] LABS: ALANINE AMINOTRANSFERASE 21 Units/L (12-78); ALBUMIN 2.3 g/dL (3.4-5.0); ALKALINE PHOSPHATASE 43 Units/L (46-116); ASPARTATE AMINO TRANSFERASE 15 Units/L (15-37); BLOOD UREA NITROGEN 11 mg/dL (7-18); CALCIUM 7.7 mg/dL (8.5-10.1); CARBON DIOXIDE 25.9 mmol/L (21-32); CHLORIDE 103 mmol/L (98-107); COR CA(FOR HYPOALB) 9.1 mg/dL (8.5-10.1); CREATININE 0.48 mg/dL (0.55-1.02); SODIUM 137 mmol/L (136-145); TOTAL PROTEIN 5.5 g/dL (6.4-8.2); eGFR NON BLACK RACES > 60 (>60)
[2019-06-19] MEDS: ZESTRIL TAB 5 MG PO SCH (09:44)
[2019-06-19] MEDS: LOVENOX INJ 40 MG SYR SC SCH (09:45)
[2019-06-19] MEDS: GLUCOPHAGE XR PO SCH ×2 (09:57→21:08)
[2019-06-19] MEDS: CALAN SR 180 MG PO SCH ×2 (09:57→21:08)
[2019-06-19] MEDS: TOVIAZ PO SCH (10:00)
[2019-06-19] MEDS ORDERED: PEPCID 20 MG IV PREMIX* 20 MG/50 ML BAG IV SCH (10:00)
[2019-06-19] MEDS: SNACK - Diabetic Appropriate PO SCH (20:00)
[2019-06-20] MEDS: NS + KCL 20 MEQ/L 1,000 ML IV SCH ×4 (02:00→17:34)
[2019-06-20] MEDS: DILAUDID INJ IVP PRN ×5 (03:58→22:46)
[2019-06-20 05:25] LABS: BASOPHILS % (AUTO) 0.2 % (0.2-1.0); EOSINOPHILS # (AUTO) 0.2 x10^3/uL (0.0-0.2); HEMATOCRIT 26.7 % (36.0-47.0); LYMPHOCYTES # (AUTO) 1.9 X10^3/uL (1.3-2.9); LYMPHOCYTES % (AUTO) 17.1 % (21.0-51.0); MEAN CORPUSCULAR HEMOGLOBIN 28.2 pg (27.0-34.0); MEAN CORPUSCULAR HGB CONC 33.9 g/dL (33.0-35.0); MEAN CORPUSCULAR VOLUME 83.3 fL (80.0-100.0); MEAN PLATELET VOLUME 8.2 fL (7.4-11.0); MONOCYTES # (AUTO) 0.8 x10^3/uL (0.3-0.8); NEUTROPHILS # (AUTO) 8.2 x10^3/uL (2.2-4.8); NEUTROPHILS % (AUTO) 73.7 % (42.0-75.0); PLATELET COUNT 302 X10^3/uL (150.0-450.0); RED CELL DISTRIBUTION WIDTH 13.2 % (11.6-16.5); WHITE BLOOD COUNT 11.2 X10^3/uL (3.6-10.0)
[2019-06-20 05:36] LABS: ALANINE AMINOTRANSFERASE 17 Units/L (12-78); ALBUMIN 2.2 g/dL (3.4-5.0); ALKALINE PHOSPHATASE 37 Units/L (46-116); ASPARTATE AMINO TRANSFERASE 14 Units/L (15-37); BLOOD UREA NITROGEN 8 mg/dL (7-18); CALCIUM 7.5 mg/dL (8.5-10.1); CARBON DIOXIDE 25.9 mmol/L (21-32); CHLORIDE 102 mmol/L (98-107); COR CA(FOR HYPOALB) 8.9 mg/dL (8.5-10.1); CREATININE 0.43 mg/dL (0.55-1.02); SODIUM 136 mmol/L (136-145); eGFR NON BLACK RACES > 60 (>60)
[2019-06-20] MEDS: ZESTRIL TAB 5 MG PO SCH (08:39)
[2019-06-20] MEDS: GLUCOPHAGE XR PO SCH ×2 (08:40→21:31)
[2019-06-20] MEDS: PEPCID 20 MG IV PREMIX* 20 MG/50 ML BAG IV SCH ×2 (08:40→21:32)
[2019-06-20] MEDS: TOVIAZ PO SCH (08:40)
[2019-06-20] MEDS: CALAN SR 180 MG PO SCH ×2 (08:40→21:31)
[2019-06-20] MEDS: LOVENOX INJ 40 MG SYR SC SCH (08:41)
[2019-06-20] MEDS: K-DUR TAB 20 MEQ PO PRN (11:35)
[2019-06-20] MEDS: SNACK - Diabetic Appropriate PO SCH (21:31)
[2019-06-21] MEDS: NS + KCL 20 MEQ/L 1,000 ML IV SCH ×3 (04:55→17:13)
[2019-06-21] MEDS: DILAUDID INJ IVP PRN ×3 (04:55→17:02)
[2019-06-21 05:55] LABS: BASOPHILS % (AUTO) 0.4 % (0.2-1.0); EOSINOPHILS # (AUTO) 0.3 x10^3/uL (0.0-0.2); EOSINOPHILS % (AUTO) 3.4 % (0.9-2.9); LYMPHOCYTES # (AUTO) 1.5 X10^3/uL (1.3-2.9); LYMPHOCYTES % (AUTO) 16.8 % (21.0-51.0); MEAN CORPUSCULAR HEMOGLOBIN 28.8 pg (27.0-34.0); MEAN CORPUSCULAR HGB CONC 34.7 g/dL (33.0-35.0); MEAN CORPUSCULAR VOLUME 83.1 fL (80.0-100.0); MEAN PLATELET VOLUME 7.9 fL (7.4-11.0); MONOCYTES # (AUTO) 0.7 x10^3/uL (0.3-0.8); MONOCYTES % (AUTO) 8.4 % (0.0-13.0); NEUTROPHILS # (AUTO) 6.3 x10^3/uL (2.2-4.8); PLATELET COUNT 303 X10^3/uL (150.0-450.0); RED BLOOD COUNT 3.13 X10^6/uL (3.5-5.4); RED CELL DISTRIBUTION WIDTH 13.4 % (11.6-16.5); WHITE BLOOD COUNT 8.8 X10^3/uL (3.6-10.0)
[2019-06-21 06:04] LABS: ALANINE AMINOTRANSFERASE 19 Units/L (12-78); ALBUMIN 2.2 g/dL (3.4-5.0); ALKALINE PHOSPHATASE 37 Units/L (46-116); ASPARTATE AMINO TRANSFERASE 15 Units/L (15-37); BLOOD UREA NITROGEN 5 mg/dL (7-18); CALCIUM 7.6 mg/dL (8.5-10.1); CARBON DIOXIDE 27.5 mmol/L (21-32); CHLORIDE 102 mmol/L (98-107); CREATININE 0.38 mg/dL (0.55-1.02); SODIUM 135 mmol/L (136-145); TOTAL PROTEIN 4.8 g/dL (6.4-8.2); eGFR NON BLACK RACES > 60 (>60)
[2019-06-21] MEDS: CALAN SR 180 MG PO SCH ×2 (08:41→20:29)
[2019-06-21] MEDS: GLUCOPHAGE XR PO SCH ×2 (08:41→20:27)
[2019-06-21] MEDS: ZESTRIL TAB 5 MG PO SCH (08:42)
[2019-06-21] MEDS: LOVENOX INJ 40 MG SYR SC SCH (08:42)
[2019-06-21] MEDS: PEPCID 20 MG IV PREMIX* 20 MG/50 ML BAG IV SCH ×2 (08:42→20:27)
[2019-06-21] MEDS: TOVIAZ PO SCH (08:42)
--- NOTE | 2019-06-21 10:05 | PCM.PROG ---
Progress Note Progress Note for Day of Date of Exam: 06/21/19 Subjective Subjective: Pt is a 69 yo f admitted for cecal volvulus and sepsis, POD#6 s/p laparotomy, Rt colectomy w/ lysis of adhesions. She has been having good urine output since procedure. VS stable, she was sitting up in bed this morning, conversational. She has BOB drain in place with minimal serosanguinous output. She was advanced from a liquid d to soft diet. Her wbc 8.2(wnl) and she has remained afebrile. Pt is overall feeling better that yesterday. Past Medical Family Social History Past Med/Fam/Surg Hx: No changes since H&P Allergies: Allergies codeine Allergy (Verified 06/14/19 17:48) diltiazem [From Cardizem] Allergy (Verified 06/14/19 23:05) ondansetron [From Zofran] Allergy (Verified 06/14/19 17:48) Review of Systems ROS: No change since H&P Vital Signs and I&O's Vital Signs: Temperature 98.3 F Pulse Rate [Left Brachial] 83 Pulse Rate 67 Respiratory Rate 21 Blood Pressure [Left Arm] 161/76 Blood Pressure 146/66 O2 Sat by Pulse Oximetry 97 Intake and Output: Intake & Output 06/18/19 06/19/19 06/20/19 06/21/19 23:59 23:59 23:59 23:59 Intake Total 4478 / 4478 3769 / 3769 4366 / 4366 764 / 764 Output Total 5135 / 5135 1451 / 1451 2617 / 2617 550 / 550 Balance -657 / -657 2318 / 2318 1749 / 1749 214 / 214 Physical Exam Oriented: Normal Ear: Normal Nose: Normal Throat: Normal Respiratory: Normal Cardiovascular: Normal : Normal Auscultation: Bowel Sounds: Normal Tenderness: Normal Musculoskeletal: Normal Mood Description: Calm Speech Pattern: Clear and Appropriate Laboratory and Diagnostics Result Diagrams: 06/21/19 05:35 06/21/19 05:35 Labs: 06/14/19 18:06 Blood Blood Culture - Final 06/14/19 17:58 Blood Blood Culture - Final Laboratory WBC 8.8 X10^3/uL (3.6-10.0) 06/21/19 05:35 RBC 3.13 X10^6/uL (3.5-5.4) L 06/21/19 05:35 Hgb 9.0 g/dL (12.0-16.0) L 06/21/19 05:35 Hct 26.0 % (36.0-47.0) L 06/21/19 05:35 MCV 83.1 fL (80.0-100.0) 06/21/19 05:35 MCH 28.8 pg (27.0-34.0) 06/21/19 05:35 MCHC 34.7 g/dL (33.0-35.0) 06/21/19 05:35 RDW 13.4 % (11.6-16.5) 06/21/19 05:35 Plt Count 303 X10^3/uL (150.0-450.0) 06/21/19 05:35 MPV 7.9 fL (7.4-11.0) 06/21/19 05:35 Neut % (Auto) 71.0 % (42.0-75.0) 06/21/19 05:35 Lymph % (Auto) 16.8 % (21.0-51.0) L 06/21/19 05:35 [place] % (Auto) 8.4 % (0.0-13.0) 06/21/19 05:35 Eos % (Auto) 3.4 % (0.9-2.9) H 06/21/19 05:35 Baso % (Auto) 0.4 % (0.2-1.0) 06/21/19 05:35 Neut # (Auto) 6.3 x10^3/uL (2.2-4.8) H 06/21/19 05:35 Lymph # (Auto) 1.5 X10^3/uL (1.3-2.9) 06/21/19 05:35 [place] # (Auto) 0.7 x10^3/uL (0.3-0.8) 06/21/19 05:35 Eos # (Auto) 0.3 x10^3/uL (0.0-0.2) H 06/21/19 05:35 Baso # (Auto) 0.0 X10^3/uL (0.0-0.1) 06/21/19 05:35 Absolute Nucleated RBC 0.1 /100WBC 06/21/19 05:35 Sodium 135 mmol/L (136-145) L 06/21/19 05:35 Corrected Sodium TNP 06/21/19 05:35 Potassium 3.6 mmol/L (3.5-5.1) 06/21/19 05:35 Chloride 102 mmol/L (98-107) 06/21/19 05:35 Carbon Dioxide 27.5 mmol/L (21-32) 06/21/19 05:35 BUN 5 mg/dL (7-18) L 06/21/19 05:35 Creatinine 0.38 mg/dL (0.55-1.02) L 06/21/19 05:35 Est GFR (MDRD) Af Amer > 60 (>60) 06/21/19 05:35 Est GFR (MDRD) Non-Af > 60 (>60) 06/21/19 05:35 Glucose 90 mg/dL (65-99) 06/21/19 05:35 POC Glucose (mg/dL) 85 mg/dL (65-99) 06/21/19 05:03 Lactic Acid 0.8 mmol/L (0.4-2.0) 06/15/19 05:52 Calcium 7.6 mg/dL (8.5-10.1) L 06/21/19 05:35 Corrected Calcium 9.0 mg/dL (8.5-10.1) 06/21/19 05:35 Magnesium 2.0 mg/dL (1.7-2.9) 06/18/19 04:31 Total Bilirubin 0.40 mg/dL (0.2-1.0) 06/21/19 05:35 AST 15 Units/L (15-37) 06/21/19 05:35 ALT 19 Units/L (12-78) 06/21/19 05:35 Alkaline Phosphatase 37 Units/L (46-116) L 06/21/19 05:35 Creatine Kinase 36 Units/L (26-192) 06/15/19 05:52 CK-MB (CK-2) < 1.0 ng/mL (0-4.0) 06/15/19 05:52 CK/CKMB % Calc 2.8 % (<4) 06/15/19 05:52 Troponin I < 0.02 ng/mL (0-1.5) 06/15/19 05:52 Total Protein 4.8 g/dL (6.4-8.2) L 06/21/19 05:35 Albumin 2.2 g/dL (3.4-5.0) L 06/21/19 05:35 Globulin 2.6 g/dL (2.5-4.5) 06/21/19 05:35 Albumin/Globulin Ratio 0.8 Ratio (1.1-2.1) L 06/21/19 05:35 Triglycerides 71 mg/dL (0-150) 06/15/19 05:52 Cholesterol 87 mg/dL (0-200) 06/15/19 05:52 LDL Cholesterol, Calc 34 mg/dL (0-100) 06/15/19 05:52 HDL Cholesterol 39 mg/dL (40-60) L 06/15/19 05:52 Cholesterol/HDL Ratio 2.2 (0.0-5.0) 06/15/19 05:52 Specimen Type Catherized urine 06/15/19 10:53 Urine Color Yellow (YELLOW) 06/15/19 10:53 Urine Appearance Clear (CLEAR) 06/15/19 10:53 Urine pH 6.0 (5.0 - 8.0) 06/15/19 10:53 Ur Specific [place] 1.020 (1.000-1.030) 06/15/19 10:53 Urine Protein 2+ (NEGATIVE) 06/15/19 10:53 Urine Glucose (UA) Negative (NEGATIVE) 06/15/19 10:53 Urine Ketones 2+ (NEGATIVE) 06/15/19 10:53 Urine Occult Blood 3+ (NEGATIVE) 06/15/19 10:53 Urine Nitrite Negative (NEGATIVE) 06/15/19 10:53 Urine Bilirubin Negative (NEGATIVE) 06/15/19 10:53 Urine Urobilinogen Normal (NORMAL) 06/15/19 10:53 Ur Leukocyte Esterase Negative (NEGATIVE) 06/15/19 10:53 Urine RBC 5-10 /HPF (0-3) A 06/15/19 10:53 Urine WBC 0-2 /HPF (0-5) 06/15/19 10:53 Ur Squamous Epith Cells Rare /HPF (NEGATIVE) 06/15/19 10:53 Urine Bacteria Negative /HPF (NEGATIVE) 06/15/19 10:53 Ur Culture Indicated? No/not indicated 06/15/19 10:53 Tissue Pathology To follow 06/15/19 11:26 Plan (1) Status post laparoscopic colectomy: Status: Acute (2) Cecal volvulus: Status: Acute (3) Sepsis: Status: Acute Qualifiers: Sepsis acute organ dysfunction status: without acute organ dysfunction Sepsis type: sepsis due to unspecified organism Qualified Code(s): A41.9 - Sepsis, unspecified organism
[2019-06-21] MEDS: K-DUR TAB 20 MEQ PO PRN (10:18)
[2019-06-21] MEDS: MAGNESIUM SULFATE 1 GRAM/100 mL PREMIX 1 GM/100 ML BAG IV PRN ×2 (13:38→14:12)
[2019-06-21] MEDS: SNACK - Diabetic Appropriate PO SCH (20:29)
[2019-06-21] MEDS ORDERED: NORCO 5/325 MG TAB ONE (22:36)
[2019-06-22] MEDS: NS + KCL 20 MEQ/L 1,000 ML IV SCH ×4 (00:08→20:53)
[2019-06-22] MEDS: NORCO 5/325 MG TAB PO PRN (05:08)
[2019-06-22 06:04] LABS: BASOPHILS % (AUTO) 0.4 % (0.2-1.0); EOSINOPHILS # (AUTO) 0.3 x10^3/uL (0.0-0.2); EOSINOPHILS % (AUTO) 3.9 % (0.9-2.9); HEMATOCRIT 25.7 % (36.0-47.0); HEMOGLOBIN 8.7 g/dL (12.0-16.0); LYMPHOCYTES # (AUTO) 1.6 X10^3/uL (1.3-2.9); LYMPHOCYTES % (AUTO) 18.1 % (21.0-51.0); MEAN CORPUSCULAR HEMOGLOBIN 28.2 pg (27.0-34.0); MEAN PLATELET VOLUME 8.1 fL (7.4-11.0); MONOCYTES # (AUTO) 0.8 x10^3/uL (0.3-0.8); NEUTROPHILS # (AUTO) 5.9 x10^3/uL (2.2-4.8); NEUTROPHILS % (AUTO) 68.6 % (42.0-75.0); PLATELET COUNT 339 X10^3/uL (150.0-450.0); RED CELL DISTRIBUTION WIDTH 13.2 % (11.6-16.5); WHITE BLOOD COUNT 8.6 X10^3/uL (3.6-10.0)
[2019-06-22 06:29] LABS: BLOOD UREA NITROGEN 5 mg/dL (7-18); CALCIUM 7.8 mg/dL (8.5-10.1); CARBON DIOXIDE 27.7 mmol/L (21-32); CHLORIDE 104 mmol/L (98-107); CREATININE 0.42 mg/dL (0.55-1.02); MAGNESIUM 1.8 mg/dL (1.7-2.9); SODIUM 136 mmol/L (136-145); eGFR NON BLACK RACES > 60 (>60)
[2019-06-22] MEDS: DILAUDID INJ IVP PRN ×4 (09:26→20:48)
[2019-06-22] MEDS: PEPCID 20 MG IV PREMIX* 20 MG/50 ML BAG IV SCH ×2 (09:42→20:46)
[2019-06-22] MEDS: CALAN SR 180 MG PO SCH ×2 (09:43→20:45)
[2019-06-22] MEDS: ZESTRIL TAB 5 MG PO SCH (09:43)
[2019-06-22] MEDS: TOVIAZ PO SCH (09:43)
[2019-06-22] MEDS: GLUCOPHAGE XR PO SCH ×2 (09:43→20:45)
[2019-06-22] MEDS: LOVENOX INJ 40 MG SYR SC SCH (09:44)
--- NOTE | 2019-06-22 10:15 | PCM.PROG ---
Progress Note Progress Note for Day of Date of Exam: 06/22/19 Subjective Subjective: Pt is a 69 yo f admitted for cecal volvulus and sepsis, POD#7 s/p laparotomy, Rt colectomy w/ lysis of adhesions. She has been having good urine output since procedure. VS stable, she was sitting up in bed this morning. She has BOB drain in place with serous output noted. She was advanced from a liquid to soft diet and tolerated well. Her wbc normalized and she has remained afebrile. Pt is overall feeling better. Past Medical Family Social History Past Med/Fam/Surg Hx: No changes since H&P Allergies: Allergies codeine Allergy (Verified 06/14/19 17:48) diltiazem [From Cardizem] Allergy (Verified 06/14/19 23:05) ondansetron [From Zofran] Allergy (Verified 06/14/19 17:48) Review of Systems ROS: No change since H&P Vital Signs and I&O's Vital Signs: Temperature 97.4 F Pulse Rate [Left Brachial] 83 Pulse Rate 62 Respiratory Rate 12 Blood Pressure [Left Arm] 161/76 Blood Pressure 128/60 O2 Sat by Pulse Oximetry 94 Intake and Output: Intake & Output 06/19/19 06/20/19 06/21/19 06/22/19 23:59 23:59 23:59 23:59 Intake Total 3769 / 3769 4366 / 4366 3709 / 3709 687 / 687 Output Total 1451 / 1451 2617 / 2617 2150 / 2150 510 / 510 Balance 2318 / 2318 1749 / 1749 1559 / 1559 177 / 177 Physical Exam Oriented: Normal Ear: Normal Nose: Normal Throat: Normal Respiratory: Normal Cardiovascular: Normal : Normal Auscultation: Bowel Sounds: Normal Tenderness: Normal Skin: Normal Musculoskeletal: Normal Mood Description: Calm Speech Pattern: Clear and Appropriate Laboratory and Diagnostics Result Diagrams: 06/22/19 04:30 06/22/19 04:30 Labs: 06/14/19 18:06 Blood Blood Culture - Final 06/14/19 17:58 Blood Blood Culture - Final Laboratory WBC 8.6 X10^3/uL (3.6-10.0) 06/22/19 04:30 RBC 3.10 X10^6/uL (3.5-5.4) L 06/22/19 04:30 Hgb 8.7 g/dL (12.0-16.0) L 06/22/19 04:30 Hct 25.7 % (36.0-47.0) L 06/22/19 04:30 MCV 83.0 fL (80.0-100.0) 06/22/19 04:30 MCH 28.2 pg (27.0-34.0) 06/22/19 04:30 MCHC 34.0 g/dL (33.0-35.0) 06/22/19 04:30 RDW 13.2 % (11.6-16.5) 06/22/19 04:30 Plt Count 339 X10^3/uL (150.0-450.0) 06/22/19 04:30 MPV 8.1 fL (7.4-11.0) 06/22/19 04:30 Neut % (Auto) 68.6 % (42.0-75.0) 06/22/19 04:30 Lymph % (Auto) 18.1 % (21.0-51.0) L 06/22/19 04:30 [place] % (Auto) 9.0 % (0.0-13.0) 06/22/19 04:30 Eos % (Auto) 3.9 % (0.9-2.9) H 06/22/19 04:30 Baso % (Auto) 0.4 % (0.2-1.0) 06/22/19 04:30 Neut # (Auto) 5.9 x10^3/uL (2.2-4.8) H 06/22/19 04:30 Lymph # (Auto) 1.6 X10^3/uL (1.3-2.9) 06/22/19 04:30 [place] # (Auto) 0.8 x10^3/uL (0.3-0.8) 06/22/19 04:30 Eos # (Auto) 0.3 x10^3/uL (0.0-0.2) H 06/22/19 04:30 Baso # (Auto) 0.0 X10^3/uL (0.0-0.1) 06/22/19 04:30 Absolute Nucleated RBC 0.0 /100WBC 06/22/19 04:30 Sodium 136 mmol/L (136-145) 06/22/19 04:30 Corrected Sodium TNP 06/22/19 04:30 Potassium 3.7 mmol/L (3.5-5.1) 06/22/19 04:30 Chloride 104 mmol/L (98-107) 06/22/19 04:30 Carbon Dioxide 27.7 mmol/L (21-32) 06/22/19 04:30 BUN 5 mg/dL (7-18) L 06/22/19 04:30 Creatinine 0.42 mg/dL (0.55-1.02) L 06/22/19 04:30 Est GFR (MDRD) Af Amer > 60 (>60) 06/22/19 04:30 Est GFR (MDRD) Non-Af > 60 (>60) 06/22/19 04:30 Glucose 103 mg/dL (65-99) H 06/22/19 04:30 POC Glucose (mg/dL) 93 mg/dL (65-99) 06/22/19 05:45 Lactic Acid 0.8 mmol/L (0.4-2.0) 06/15/19 05:52 Calcium 7.8 mg/dL (8.5-10.1) L 06/22/19 04:30 Corrected Calcium 9.0 mg/dL (8.5-10.1) 06/21/19 05:35 Magnesium 1.8 mg/dL (1.7-2.9) 06/22/19 04:30 Total Bilirubin 0.40 mg/dL (0.2-1.0) 06/21/19 05:35 AST 15 Units/L (15-37) 06/21/19 05:35 ALT 19 Units/L (12-78) 06/21/19 05:35 Alkaline Phosphatase 37 Units/L (46-116) L 06/21/19 05:35 Creatine Kinase 36 Units/L (26-192) 06/15/19 05:52 CK-MB (CK-2) < 1.0 ng/mL (0-4.0) 06/15/19 05:52 CK/CKMB % Calc 2.8 % (<4) 06/15/19 05:52 Troponin I < 0.02 ng/mL (0-1.5) 06/15/19 05:52 Total Protein 4.8 g/dL (6.4-8.2) L 06/21/19 05:35 Albumin 2.2 g/dL (3.4-5.0) L 06/21/19 05:35 Globulin 2.6 g/dL (2.5-4.5) 06/21/19 05:35 Albumin/Globulin Ratio 0.8 Ratio (1.1-2.1) L 06/21/19 05:35 Triglycerides 71 mg/dL (0-150) 06/15/19 05:52 Cholesterol 87 mg/dL (0-200) 06/15/19 05:52 LDL Cholesterol, Calc 34 mg/dL (0-100) 06/15/19 05:52 HDL Cholesterol 39 mg/dL (40-60) L 06/15/19 05:52 Cholesterol/HDL Ratio 2.2 (0.0-5.0) 06/15/19 05:52 Specimen Type Catherized urine 06/15/19 10:53 Urine Color Yellow (YELLOW) 06/15/19 10:53 Urine Appearance Clear (CLEAR) 06/15/19 10:53 Urine pH 6.0 (5.0 - 8.0) 06/15/19 10:53 Ur Specific [place] 1.020 (1.000-1.030) 06/15/19 10:53 Urine Protein 2+ (NEGATIVE) 06/15/19 10:53 Urine Glucose (UA) Negative (NEGATIVE) 06/15/19 10:53 Urine Ketones 2+ (NEGATIVE) 06/15/19 10:53 Urine Occult Blood 3+ (NEGATIVE) 06/15/19 10:53 Urine Nitrite Negative (NEGATIVE) 06/15/19 10:53 Urine Bilirubin Negative (NEGATIVE) 06/15/19 10:53 Urine Urobilinogen Normal (NORMAL) 06/15/19 10:53 Ur Leukocyte Esterase Negative (NEGATIVE) 06/15/19 10:53 Urine RBC 5-10 /HPF (0-3) A 06/15/19 10:53 Urine WBC 0-2 /HPF (0-5) 06/15/19 10:53 Ur Squamous Epith Cells Rare /HPF (NEGATIVE) 06/15/19 10:53 Urine Bacteria Negative /HPF (NEGATIVE) 06/15/19 10:53 Ur Culture Indicated? No/not indicated 06/15/19 10:53 Tissue Pathology To follow 06/15/19 11:26 Plan (1) Status post laparoscopic colectomy: Status: Acute Plan: POD#7. B[address]. Surgery to evaluate for removal tmm. (2) Cecal volvulus: Status: Acute (3) Sepsis: Status: Acute Qualifiers: Sepsis acute organ dysfunction status: without acute organ dysfunction Sepsis type: sepsis due to unspecified organism Qualified Code(s): A41.9 - Sepsis, unspecified organism
[2019-06-22] MEDS: K-DUR TAB 20 MEQ PO PRN (14:29)
[2019-06-22] MEDS: SNACK - Diabetic Appropriate PO SCH (20:53)
[2019-06-23] MEDS: MAGNESIUM SULFATE 1 GRAM/100 mL PREMIX 1 GM/100 ML BAG IV PRN ×2 (00:15→01:42)
[2019-06-23] MEDS: NS + KCL 20 MEQ/L 1,000 ML IV SCH ×2 (00:59→08:46)
[2019-06-23] MEDS: NORCO 5/325 MG TAB PO PRN ×2 (02:45→12:11)
[2019-06-23] MEDS: DILAUDID INJ IVP PRN (03:45)
[2019-06-23 04:05] LABS: BILIRUBIN,URINE NEGATIVE (NEGATIVE); BLOOD/HEMOGLOBIN,URINE 1+ (NEGATIVE); GLUCOSE, URINE NEGATIVE (NEGATIVE); KETONES,URINE NEGATIVE (NEGATIVE); LEUKOCYTE ESTERASE ,URINE NEGATIVE (NEGATIVE); NITRITES,URINE NEGATIVE (NEGATIVE); PH,URINE 6.5 (5.0 - 8.0); PROTEIN,URINE NEGATIVE (NEGATIVE); UROBILINOGEN,URINE NORMAL (NORMAL)
[2019-06-23 04:08] LABS: APPEARANCE,URINE CLEAR (CLEAR); BACTERIA,URINE NEGATIVE /HPF (NEGATIVE); COLOR,URINE PALE YELLOW (YELLOW); RBC,URINE NONE SEEN /HPF (0-3); SQUAMOUS EPITHELIAL CELL,UR RARE /HPF (NEGATIVE)
[2019-06-23 06:23] LABS: BASOPHILS # (AUTO) 0.1 X10^3/uL (0.0-0.1); BASOPHILS % (AUTO) 0.6 % (0.2-1.0); EOSINOPHILS # (AUTO) 0.3 x10^3/uL (0.0-0.2); EOSINOPHILS % (AUTO) 3.8 % (0.9-2.9); HEMATOCRIT 27.1 % (36.0-47.0); HEMOGLOBIN 9.3 g/dL (12.0-16.0); LYMPHOCYTES # (AUTO) 1.4 X10^3/uL (1.3-2.9); LYMPHOCYTES % (AUTO) 15.5 % (21.0-51.0); MEAN CORPUSCULAR HEMOGLOBIN 28.4 pg (27.0-34.0); MEAN CORPUSCULAR HGB CONC 34.3 g/dL (33.0-35.0); MEAN CORPUSCULAR VOLUME 82.7 fL (80.0-100.0); MEAN PLATELET VOLUME 7.5 fL (7.4-11.0); MONOCYTES # (AUTO) 0.9 x10^3/uL (0.3-0.8); NEUTROPHILS # (AUTO) 6.2 x10^3/uL (2.2-4.8); NEUTROPHILS % (AUTO) 70.1 % (42.0-75.0); PLATELET COUNT 384 X10^3/uL (150.0-450.0); RED BLOOD COUNT 3.28 X10^6/uL (3.5-5.4); RED CELL DISTRIBUTION WIDTH 13.5 % (11.6-16.5); WHITE BLOOD COUNT 8.8 X10^3/uL (3.6-10.0)
[2019-06-23 06:45] LABS: BLOOD UREA NITROGEN 4 mg/dL (7-18); CALCIUM 7.6 mg/dL (8.5-10.1); CHLORIDE 103 mmol/L (98-107); COR NA(FOR HYPERGLY) 136 mmol/L (136-145); CREATININE 0.46 mg/dL (0.55-1.02); MAGNESIUM 2.2 mg/dL (1.7-2.9); SODIUM 136 mmol/L (136-145); eGFR NON BLACK RACES > 60 (>60)
[2019-06-23] MEDS: ZESTRIL TAB 5 MG PO SCH (08:47)
[2019-06-23] MEDS: GLUCOPHAGE XR PO SCH (08:48)
[2019-06-23] MEDS: TOVIAZ PO SCH (08:48)
[2019-06-23] MEDS: CALAN SR 180 MG PO SCH (08:48)
[2019-06-23] MEDS: PEPCID 20 MG IV PREMIX* 20 MG/50 ML BAG IV SCH (08:49)
[2019-06-23] MEDS: LOVENOX INJ 40 MG SYR SC SCH (08:50)
[2019-06-23 17:02] VITALS: BP 118/57
== END 2019-06-23 16:50 | disposition home or self-care (01) | DRG 344 ==
LOC: ER 17:45 → MED/SURG 21:14 → ICU 06-15 14:01
PROVIDERS: ADMIT Obstetrics & Gynecology Obstetrics; ATTEND Obstetrics & Gynecology Obstetrics
DX: K21.9 Gastro-esophageal reflux disease without esophagitis; K66.0 Peritoneal adhesions (postprocedural) (postinfection); K56.2 Volvulus; R94.31 Abnormal electrocardiogram [ECG] [EKG]; R11.2 Nausea with vomiting, unspecified; R26.89 Other abnormalities of gait and mobility; R10.84 Generalized abdominal pain; Z95.1 Presence of aortocoronary bypass graft; A41.9 Sepsis, unspecified organism
CPT/HCPCS: 36415; 71010; 71045; 74000; 74018; 74177; 80048; 80053; 80061; 81001; 82550; 82553; 83605; 83735; 84132; 84484; 85025; 87040; 88307; 93005; 96365; 96374; 96375; 97116; 97162; 97165; 97530; 99100; 99284; A4216; A4222; J0330; J0780; J1170; J1650; J1790; J1815; J1956; J2250; J2543; J2704; J2710; J3010; J3475; J3490; J7030; J7050; S0028; S0030